=== PATIENT | male | born 1940 | race Caucasian/White ===

== ENCOUNTER → 2018-08-27 | Outpatient (CLI) | payer MEDICARE ==
--- NOTE | 2018-08-27 13:27 | Diagnostic Imaging Report ---
EXAMINATION: CHEST 2 VIEWS INDICATION: ^SHORTNESS OF BREATH COMPARISON: Chest radiograph 11/06/2016 FINDINGS: PA and lateral views TUBES and LINES: ICD device overlying the left upper chest. Since last exam, there has been placement of an additional right ventricular ICD lead. Previously seen right atrial and right ventricular lead remains unchanged. LUNGS: Lungs are well inflated. Minimal atelectasis in both lung bases is unchanged. There is no evidence of pneumonia or pulmonary edema. PLEURA: No pleural effusion or pneumothorax. HEART AND MEDIASTINUM: Mild enlargement of the cardiac silhouette. BONES AND SOFT TISSUES: No acute osseous lesion. Soft tissues are unremarkable. UPPER ABDOMEN: No free air under the diaphragm. IMPRESSION: Mild cardiomegaly without pulmonary decompensation. Stable bibasilar atelectasis. Signed by: Dr. Sri Begum M.D. on 08/27/2018 1:24 PM
== END ==
LOC: RAD 11:58
PROVIDERS: ATTEND Internal Medicine
DX: R06.02 Shortness of breath (principal)
CPT/HCPCS: 71046

== ENCOUNTER 2018-10-30 17:07 | Emergency (ER) | payer MEDICARE ==
[~2018-10-30] VITALS: Ht 185.4 cm; Wt 95.3 kg
--- OUTSIDE RECORDS SUMMARY | 2018-10-30 17:10 | XMS REPORT | Clinical Summary ---
Author Author [facility] Address Unknown Phone Unavailable Care Team Providers Care Flexo Press Operator Name Role Phone PCP Unavailable Allergies Not on File Medications Not on file Active Problems Not on file Social History Date Tobacco Use Types Packs/Day Years Used Never Assessed Sex Assigned at Date Recorded Not on file Industry Job Start Date Occupation Not on file Not on file Not on file Travel End Travel History Travel Start No recent travel history available. Last Filed Vital Signs Not on file Plan of Treatment Health Maintenance Due Date Last Done Comments SHINGLES VACCINES (1 of 1992 2) PNEUMOCOCCAL 2007 POLYSACCHARIDE VACCINE AGE 65 AND OVER PNEUMOCOCCAL-13 2007 INFLUENZA VACCINE 06/03/2018 Results Not on fileafter 10/29/2017 Insurance Payer Benefit Subscriber ID Type Phone Address Plan / Group HUMANA HUMANA xxxxxxxxx PPO CHOICE CARE PPO Advance Directives Patient has advance care planning documents on file. For more information, cristal jim contact: David Camara [address] [place] [phone]
--- OUTSIDE RECORDS SUMMARY | 2018-10-30 17:10 | XMS REPORT ---
Author Author [facility] Address Unknown Phone Unavailable Care Team Providers Care Claims Configuration Analyst Name Role Phone TYLER ROJAS Unavailable Unavailable Payers Payer Name Policy Type Policy Number Effective Date Expiration Date Problems This patient has no known problems. Allergies, Adverse Reactions, Alerts Allergy Name Allergy Type Status Severity Reaction(s) Onset Date Inactive Date Treating Clinician Comments No Known Allergies DA Active U 2016-09-20 00:00:00 Medications This patient has no known medications. Results Test Description Test Time Test Comments Text Results Atomic Results Result Comments CHEST 2 VIEWS 2018-08-27 13:18:00 [place] [address] Patient Name: RICKY GIBBONS MR #: [id number] : 1940 Age/Sex: 78/M Req #: [id number] Adm Physician: Ordered by: TYLER ROJAS MD Report #: [id number] Location: [facility] Room/Bed: Procedure: [id number] DX/CHEST 2 VIEWS Exam Date: Exam Time: REPORT STATUS: Signed EXAMINATION: CHEST 2 VIEWS INDICATION: SHORTNESS OF BREATH COMPARISON: Chest radiograph 11/06/2016 FINDINGS: PA and lateral views TUBES and LINES: ICD device overlying the left upper chest. Since last exam, there has been placement of an additional right ventricular ICD lead. Previously seen right atrial and right ventricular lead remains unchanged. LUNGS: Lungs are well inflated. Minimal atelectasis in both lung bases is unchanged. There is no evidence of pneumonia or pulmonary edema. PLEURA: No pleural effusion or pneumothorax. HEART AND MEDIASTINUM: Mild enlargement of the cardiac silhouette. BONES AND SOFT TISSUES: No acute osseous lesion. Soft tissues are unremarkable. UPPER ABDOMEN: No free air under the diaphragm. IMPRESSION: Mild cardiomegaly without pulmonary decompensation. Stable bibasilar atelectasis. Signed by: Dr. Blanca Poe M.D. on 08/27/2018 1:24 PM Dictated By: BLANCA POE MD [id number] Transcribed By: MELANY on 08/27/18 1324 COPY TO: TYLER ROJAS MD
--- NOTE | 2018-10-30 18:32 | Diagnostic Imaging Report ---
EXAMINATION: CXR 2 VIEW - HOPD INDICATION: Shortness of breath COMPARISON: Chest x-rays 08/27/2018 and 11/06/2016 FINDINGS: PA and lateral views TUBES and LINES: ICD device with 3 leads terminating in the right atrium and right ventricle. No change in position. LUNGS: Diffuse hyperinflation consistent with COPD. No mass. There is no evidence of pneumonia or pulmonary edema. PLEURA: No pleural effusion or pneumothorax. HEART AND MEDIASTINUM: Stable mild cardiomegaly and aortic ectasia. BONES AND SOFT TISSUES: No focal osseous lesions. Soft tissues are unremarkable. UPPER ABDOMEN: No free air under the diaphragm. IMPRESSION: 1. Pulmonary hyperinflation consistent with COPD. No acute pulmonary process. 2. Stable cardiomegaly. No vascular congestion. Medical devices as described above. Signed by: Dr. Lela Graham MD on 10/30/2018 6:29 PM
== END 2018-10-30 19:40 | disposition home or self-care (01) ==
LOC: FSED 17:07
DX: R06.09 Other forms of dyspnea (principal); R94.31 Abnormal electrocardiogram [ECG] [EKG]; I50.9 Heart failure, unspecified; J44.9 Chronic obstructive pulmonary disease, unspecified; I48.91 Unspecified atrial fibrillation; E78.5 Hyperlipidemia, unspecified; Z95.810 Presence of automatic (implantable) cardiac defibrillator
CPT/HCPCS: 71046; 80053; 82553; 83880; 84484; 93005; 99283

== ENCOUNTER → 2018-12-10 | Day surgery (SDC) | payer MEDICARE ==
[2018-12-08 18:08] LABS: BASOPHILS # (AUTO) 0.1 (0.0-0.1); BASOPHILS % 1.3 % (0.0-1.0); EOSINOPHILS # (AUTO) 0.4 (0.0-0.4); EOSINOPHILS % 5.5 % (0.0-6.0); HEMATOCRIT 43.2 % (38.2-49.6); LYMPHOCYTES # (AUTO) 2.4 (1.0-3.2); LYMPHOCYTES % 30.5 % (18.0-39.1); MEAN CORPUSCULAR HEMOGLOBIN 28.7 pg (28-32); MEAN CORPUSCULAR HGB CONC 32.4 g/dL (31-35); MEAN CORPUSCULAR VOLUME 88.5 fL (81-99); MONOCYTES # (AUTO) 0.7 (0.2-0.8); MONOCYTES % 9.1 % (4.4-11.3); NEUTROPHILS # (AUTO) 4.2 (2.1-6.9); NEUTROPHILS % 53.2 % (38.7-80.0); PLATELET COUNT 176 x10e3/uL (140-360); RED BLOOD COUNT 4.88 x10e6/uL (4.3-5.7); RED CELL DISTRIBUTION WIDTH 14.8 % (11.7-14.4)
[2018-12-08 18:26] LABS: ALBUMIN/GLOBULIN RATIO 1.4 (0.8-2.0); ANION GAP 16.2 mmol/L (8-16); CALCIUM 9.3 mg/dL (8.4-10.2); CHOL/HDL RATIO 2.6 (3.9-4.7); CREATININE, SERUM 1.39 mg/dL (0.72-1.25); POTASSIUM 4.2 mmol/L (3.5-5.1)
[2018-12-08 18:30] LABS: INR 1.63; PROTHROMBIN TIME 20.7 seconds (11.9-14.5)
[2018-12-10] VITALS (12 sets, daily range): BP systolic 100–167; BP diastolic 60–94
[~2018-12-10] VITALS: Ht 185.4 cm; Wt 104.3 kg
[~2018-12-10] MED LIST: ALPRAZOLAM 0.5 MG TAB ONE; AMIODORONE PO; BENZONATATE100 MG PO; DIPHENHYDRAMINE HCL 25 MG CAP ONE; FENTANYL CITRATE/PF 100MCG/2 ML INJ ONE; FUROSEMIDE40 MG PO; GABAPENTIN300 MG PO; HEPARIN SOD (PORCINE) 1000 UNIT/ML 30ML ONE; HEPARIN SOD/SOD CHLORIDE 2,000 ML ONE; IOPAMIDOL 370 MG/ML 200 ML INFUS..BTL INJ ONE; LEVOCETIRIZINE D5 MG PO; LIDOCAINE HCL 1% LOCAL INJ 20 ML VIAL ONE; METOPROLOL TART50 MG PO; MIDAZOLAM HCL 2 MG/2 ML VIAL ONE; POTASSIUM CHLO10 MEQ PO; SIMVASTATIN; SODIUM CHLORIDE 0.9% 1000ML 1,000 ML ONE; TAMSULOSIN HCL0.4 MG PO; VERAPAMIL HCL 2.5 MG/ML 2 ML VIAL ONE; XARELTO20 MG PO; ZOLPIDEM TARTRA10 MG PO
--- OUTSIDE RECORDS SUMMARY | 2018-12-10 08:17 | XMS REPORT | Clinical Summary ---
Author Author [facility] Address Unknown Phone Unavailable Care Team Providers Care Dry Heat Room Attendant Name Role Phone PCP Unavailable Allergies Not [...] INFLUENZA VACCINE 06/03/2018 Results Not on fileafter 12/09/2017 Insurance Payer Benefit Subscriber ID Type Phone Address Plan / Group HUMANA HUMANA xxxxxxxxx PPO CHOICE CARE PPO Advance Directives Patient has advance care planning documents on file. For more information, cristal jim contact: David Camara [address] [place] [phone]
--- NOTE | 2018-12-10 10:25 | NUR ---
1025am Received report form [facility] DR Corea no fix Hx Pacemaker Atrial fib currently in paced rhythm. 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 Back to baseline orientation. Resp regular Denies necessity to defecate or urinate. Iv infusing well into left hand site healthy w/o s/s infiltration. Rt TR band approach site healthy with strong pulse 14cc in band scheduled for titration at 11:19. at bedside Crystal explained dc plans and copies with her. stable tolerating po intake. Denies CP or SOB for dc post TR band removed.
--- NOTE | 2018-12-10 11:19 | NUR ---
1119 TR band titration initiated with 3cc removed w/o s/s bleeding adequate. Positive pulse -3cc positive 11cc 12n additional -3cc successfully removed sir TR band . site healthy,positive radial pulse 1230 -3cc TR band successfully TR band positive 6cc site healthy, positive radial pulse 1300 TR band completion done site 2x2 with Coban and Tegaderm positive radial pulse , No bleed or bruising Tolerating po intake and voids to car per w/c stable vs and Ekg. Iv removed site w/o s/s infiltration 2x2 dressing [address].
--- NOTE | 2018-12-10 13:00 | NUR ---
1300 Dc home post successful Tr band titration. Tegaderm in place with Coban Iv removed site w/o s/s infiltraiton. 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 Radial pulse adequate Tolerating g PO in take and denies discomfort. To car pe [facility] escort Lydia IT COMMUNICATIONS SPECIALIST No s/s tr band site bleed or bruising Pt has dressing in place an dto car per wc/ Denies c/o
--- NOTE | 2018-12-10 13:32 | Operative Report ---
DATE OF PROCEDURE: December 10, 2018 PROCEDURES PERFORMED 1. Conscious sedation for 26 minutes. 2. Left heart catheterization. 3. Selective coronary angiography x2 via right radial approach. PREPROCEDURE DIAGNOSIS: Abnormal stress test. POSTPROCEDURE DIAGNOSIS: No significant coronary artery disease. ESTIMATED BLOOD LOSS: Less than 20 mL. SPECIMENS REMOVED: None. PROCEDURE IN DETAIL: The patient was brought to the cardiac catheterization laboratory in a fasting, nonsedated state. Informed consent was obtained. A team time out was performed. Two percent lidocaine was infiltrated over the right anterior wrist for local anesthesia. Using a micropuncture needle, the right radial artery was accessed via the modified Seldinger technique, and a 6-[place] Glidesheath was placed. Selective coronary angiography x2 and left heart catheterization were performed using a TIG catheter. Hemostasis was achieved via TR band. The patient tolerated the procedure well with no immediate complications and was transferred back to his room in stable condition. PROCEDURAL FINDINGS 1. Left main coronary artery is patent without significant disease. 2. Left anterior descending coronary artery and its diagonal branches were patent with no significant disease. 3. The left circumflex coronary artery is a small vessel and provides 3 small obtuse marginal vessels with luminal irregularities. 4. The right coronary artery is a large, dominant vessel and provides the posterior descending coronary artery without significant coronary artery disease. 5. Left ventricular end-diastolic pressure was 12-15 mmHg with no aortic valve gradient present upon pullback. RECOMMENDATIONS: The patient has no significant coronary artery disease. Stress test abnormality likely was attenuation artifact. Continue aggressive risk factor modification and medical management. Job#: [id number]
== END | disposition home or self-care (01) ==
LOC: CATH LAB 08:02
PROVIDERS: ATTEND Internal Medicine Cardiovascular Disease
DX: I25.118 Atherosclerotic heart disease of native coronary artery with other forms of angina pectoris (principal); R94.39 Abnormal result of other cardiovascular function study; I48.1 Persistent atrial fibrillation; I10 Essential (primary) hypertension; H40.9 Unspecified glaucoma; H57.89 Other specified disorders of eye and adnexa; Z01.812 Encounter for preprocedural laboratory examination; Z79.02 Long term (current) use of antithrombotics/antiplatelets; Z68.30 Body mass index [BMI] 30.0-30.9, adult
CPT/HCPCS: 36415; 80053; 80061; 85025; 85610; 93458; C1887; J1644; J2001; J2250; J7030; Q9967

== ENCOUNTER → 2020-06-06 | Day surgery (SDC) | payer MEDICARE, OTHER ==
[2020-06-01 10:43] LABS: BASOPHILS # (AUTO) 0.1 (0.0-0.1); BASOPHILS % 0.8 % (0.0-1.0); EOSINOPHILS # (AUTO) 0.4 (0.0-0.4); EOSINOPHILS % 4.5 % (0.0-6.0); HEMATOCRIT 43.8 % (38.2-49.6); HEMOGLOBIN 14.4 g/dL (14.0-18.0); LYMPHOCYTES # (AUTO) 2.3 (1.0-3.2); LYMPHOCYTES % 29.2 % (18.0-39.1); MEAN CORPUSCULAR HGB CONC 32.9 g/dL (31-35); MEAN CORPUSCULAR VOLUME 88.1 fL (81-99); MONOCYTES # (AUTO) 0.6 (0.2-0.8); MONOCYTES % 7.5 % (4.4-11.3); NEUTROPHILS # (AUTO) 4.5 (2.1-6.9); NEUTROPHILS % 57.7 % (38.7-80.0); PLATELET COUNT 207 x10e3/uL (140-360); RED BLOOD COUNT 4.97 x10e6/uL (4.3-5.7); RED CELL DISTRIBUTION WIDTH 14.6 % (11.7-14.4)
[2020-06-01 11:18] LABS: ALBUMIN 3.8 g/dL (3.5-5.0); ALBUMIN/GLOBULIN RATIO 1.2 (0.8-2.0); ANION GAP 15.2 mmol/L (8-16); CALCIUM 9.1 mg/dL (8.4-10.2); CREATININE, SERUM 1.39 mg/dL (0.72-1.25); POTASSIUM 4.2 mmol/L (3.5-5.1)
--- NOTE | 2020-06-02 16:38 | NUR ---
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 Did ask pt to reach out to [facility] for question of Sandro sanchez. manan/rn
--- NOTE | 2020-06-02 16:53 | NUR ---
4234 Left message with [facility] Dr Laguna to please inform pt regarding Xarelto medication if med is needed to hold for scheduled PIYUSH 1206/06/20. manan/esteban
[~2020-06-06] VITALS: Ht 185.4 cm; Wt 100.2 kg
[~2020-06-06] MED LIST changes: +ALDACTONE25 MG PO; -ALPRAZOLAM 0.5 MG TAB ONE; +BENZOCAINE 20% SPR 60 ML CAN ONE; +DESVENLAFAXINE50 MG PO; -DIPHENHYDRAMINE HCL 25 MG CAP ONE; +ETOMIDATE 2 MG/ML 10 ML INJ IV ONE; -FENTANYL CITRATE/PF 100MCG/2 ML INJ ONE; -HEPARIN SOD (PORCINE) 1000 UNIT/ML 30ML ONE; -HEPARIN SOD/SOD CHLORIDE 2,000 ML ONE; -IOPAMIDOL 370 MG/ML 200 ML INFUS..BTL INJ ONE; +LASIX40 MG PO; -LIDOCAINE HCL 1% LOCAL INJ 20 ML VIAL ONE; +PREDNISOLONE ACETATE 1% OP; +PROPOFOL IV EMULSION 10 MG/ML 20 ML VIAL ONE; +TIMOLOL 0.5% OP; -VERAPAMIL HCL 2.5 MG/ML 2 ML VIAL ONE; +[UNRECOGNIZED DRUG - OTHER]
[2020-06-06 13:17] VITALS: BP 112/89
[2020-06-06 13:33] VITALS: BP 109/73
[2020-06-06 13:45] VITALS: BP 93/70
[2020-06-06 14:00] VITALS: BP 103/74
--- NOTE | 2020-06-06 14:26 | NUR ---
PROCEDURE NOTE 1319 PATIENT TAKEN TO ENDO ROOM 2 FOR PIYUSH. ANESTHESIA AT BEDSIDE ASSESSING PATIENT. PATIENT HOOKED TO MONITORS AND OXYGEN APPLIED VIA NASAL CANNULA. 1320 PHYSICIAN ARRIVED AND TIME OUT PERFORMED WITH PATIENT AND STAFF PARTICIPATION. ALL AGREE. 1324 PIYUSH PROBE IN 1331 PIYUSH PROBE REMOVED. PATIENT WAS TRANSFERRED TO BAY #10 AND FULL REPORT REC FROM ANESTHESIA. PATIENT TOLERATED PROCEDURE WELL.
[2020-06-06 14:37] VITALS: BP 103/74
== END | disposition home or self-care (01) ==
LOC: CATH LAB 10:25
PROVIDERS: ATTEND Internal Medicine Interventional Cardiology
DX: I11.0 Hypertensive heart disease with heart failure (principal); I50.9 Heart failure, unspecified; I34.0 Nonrheumatic mitral (valve) insufficiency; I34.1 Nonrheumatic mitral (valve) prolapse; I10 Essential (primary) hypertension; G47.33 Obstructive sleep apnea (adult) (pediatric); E78.5 Hyperlipidemia, unspecified; F32.9 Major depressive disorder, single episode, unspecified; Z01.812 Encounter for preprocedural laboratory examination; Z11.59 Encounter for screening for other viral diseases; Z79.02 Long term (current) use of antithrombotics/antiplatelets; Z95.810 Presence of automatic (implantable) cardiac defibrillator; Z87.891 Personal history of nicotine dependence
CPT/HCPCS: 36415; 80053; 85025; 93312; 93320; 93325; J2250; J2704; J7030; U0002; 93307

== ENCOUNTER → 2022-02-13 | Outpatient (CLI) | payer MEDICARE ==
[~2022-02-13] MED LIST changes: -BENZOCAINE 20% SPR 60 ML CAN ONE; -ETOMIDATE 2 MG/ML 10 ML INJ IV ONE; -MIDAZOLAM HCL 2 MG/2 ML VIAL ONE; -PROPOFOL IV EMULSION 10 MG/ML 20 ML VIAL ONE; -SODIUM CHLORIDE 0.9% 1000ML 1,000 ML ONE
== END ==
LOC: RAD 14:43
PROVIDERS: ATTEND Internal Medicine
DX: M54.2 Cervicalgia (principal)
CPT/HCPCS: 72040

== ENCOUNTER 2023-01-29 21:34 | Emergency (ER) | payer MEDICARE, OTHER ==
[~2023-01-29] VITALS: Ht 185.4 cm; Wt 100.2 kg
== END 2023-01-30 00:45 | disposition home or self-care (01) ==
LOC: FSED 21:39
DX: S00.01XA Abrasion of scalp, initial encounter (principal); I48.91 Unspecified atrial fibrillation; D68.9 Coagulation defect, unspecified; H54.8 Legal blindness, as defined in USA
CPT/HCPCS: 70450; 99283